=== PATIENT | female | born 1960 | race Caucasian/White ===

== ENCOUNTER → 2019-07-25 | Outpatient (CLI) | payer OTHER, SELFPAY | END | disposition home or self-care (01) | LOC: RAH 08:51 | PROVIDERS: ATTEND Family Medicine | DX: M50.221 Other cervical disc displacement at C4-C5 level (principal); M71.38 Other bursal cyst, other site | CPT/HCPCS: 72141 ==

== ENCOUNTER → 2025-03-29 | Outpatient (CLI) | payer BC ==
[~2025-03-29] MED LIST: IOHEXOL 350 MG/ML 100ML INFUS..BTL IV ONE
--- NOTE | 2025-03-29 15:42 | HMCIMG ---
EXAM: CT CHEST, ABDOMEN, AND PELVIS WITH CONTRAST Technique: Helical computed tomography of the chest, abdomen, and pelvis with axial acquisition and coronal/sagittal reformations; lung and soft-tissue reconstructions. CTDIvol: 19.70 mGy; DLP: 802.80 mGy???cm. Contrast: Standard dose of intravenous contrast administered. Clinical Information: Pneumonitis. Comparison: None. Findings: CHEST: Soft tissues: Unremarkable. Lungs and large airways: Tracheobronchial tree is patent. No focal pulmonary consolidation. Subsegmental atelectasis in the basal segment of the left lower lobe adjacent to a large sliding hiatal hernia. Pleura: No pleural effusion or pneumothorax. Heart and pericardium: Heart size within normal limits; no pericardial effusion. Aorta: Thoracic aorta normal in course and caliber; proximal ascending aorta measures 32 mm. Pulmonary arteries: No filling defects to suggest pulmonary embolism. Lymph nodes (mediastinal/hilar/axillary): No enlarged lymph nodes. Mediastinum and ruba: No mass identified. Chest wall and lower neck: No abnormality identified. Bones/joints (thorax): No acute osseous abnormality. Upper abdomen (on chest images): Large sliding type hiatal hernia projecting into the left hemithorax with adjacent left lower-lobe atelectasis. ABDOMEN AND PELVIS: Liver: Liver enlarged measuring 18 cm with mild hepatic steatosis; contour and enhancement otherwise normal; no focal hepatic lesion identified on this contrast phase set. Gallbladder and biliary tree: Status post cholecystectomy. No biliary ductal dilatation. Pancreas: Normal size and morphology; no ductal dilatation; no peripancreatic stranding or fluid. Spleen: Normal size and homogeneous enhancement; no focal lesion. Adrenals: Normal morphology bilaterally. Kidneys and ureters: Normal size, position, and symmetric enhancement; no nephrolithiasis, hydronephrosis, or renal mass. Visualized ureters normal in caliber without filling defect on excretory-phase images. Stomach and duodenum: Stomach normally distended without focal wall thickening; gastroesophageal junction and pylorus unremarkable. Small bowel: Normal caliber and distribution; no wall thickening; mesenteric fat and omentum unremarkable. Colon and appendix: Colon normal in caliber without wall thickening or pericolonic inflammation; appendix normal. Peritoneum and mesentery: No free intraperitoneal air or free fluid; no mesenteric edema. Lymph nodes (abdomen/pelvis): No pathologic lymphadenopathy. Retroperitoneum and vasculature: Aorta and inferior vena cava normal in position and caliber. Abdominal wall and soft tissues: Extra-abdominal and paraspinal soft tissues unremarkable. Bones/joints (abdomen/pelvis): Bones appear mildly osteopenic; no acute osseous abnormality. Impression: * Large sliding hiatal hernia with adjacent subsegmental atelectasis in the basal left lower lobe. * No acute intrathoracic process identified: no focal consolidation, pleural effusion, pneumothorax, or pulmonary embolism. * Hepatomegaly (18 cm) with mild hepatic steatosis. * No acute intra-abdominal or pelvic abnormality; kidneys enhance symmetrically without hydronephrosis or calculus; bowel without obstruction or inflammatory change. /[place]
== END | disposition home or self-care (01) ==
LOC: RAH 08:41
PROVIDERS: ATTEND Internal Medicine Gastroenterology
DX: J98.11 Atelectasis (principal); J69.8 Pneumonitis due to inhalation of other solids and liquids; K76.0 Fatty (change of) liver, not elsewhere classified; K44.9 Diaphragmatic hernia without obstruction or gangrene; R16.0 Hepatomegaly, not elsewhere classified
CPT/HCPCS: 74160; 71260; Q9967